=== PATIENT | male | born 1955 | race Caucasian/White ===

== ENCOUNTER 2017-07-08 09:00 | Observation (INO) | payer BC, OTHER ==
[2017-07-08 09:30] LABS: #Eosinphils 0.1 thou/uL (0.0-0.7); #Lymphocytes 1.1 thou/uL (1.20-3.40); #Monocytes 0.4 thou/uL (0.11-0.59); #Neutrophils 3.3 thou/uL (1.40-6.50); %Basophils 0.9 % (0.0-1.0); %Eosinophils 1.2 % (0.0-10.0); %Lymphocytes 22.2 % (21.0-51.0); %Monocytes 7.5 % (0.0-10.0); %Neutrophils 68.3 % (42.0-75.0); Hemoglobin 14.9 g/dL (14.0-18.0); Mean Corpuscular HGB CONC 33.4 g/dL (32.0-36.0); Mean Corpuscular Hemoglobin 31.3 pg (27.0-31.0); Mean Corpuscular Volume 93.8 fl (80.0-94.0); Mean Platelet Volume 7.7 fL (7.4-10.4); Platelet Count 278 thou/uL (130-400); RBC Distribution Width 11.3 % (11.5-14.5); Red Blood Cell (RBC) Count 4.78 mill/uL (4.70-6.10); White Blood Cell (WBC) Count 4.9 thou/uL (4.8-10.8)
[2017-07-08] MEDS ORDERED: Nitroglycerin 2% Ointment 1 INCH/1 GM Packet ONE (09:37)
--- NOTE | 2017-07-08 09:52 | RAD ---
CHEST ONE VIEW: History: Chest pain. Comparison: None. FINDINGS: Lungs are clear. No pneumothorax or effusion. Cardiac silhouette and mediastinal contours are within normal limits. IMPRESSION: No acute intrathoracic abnormality. POS: [facility]
[2017-07-08 09:56] LABS: ALT (SGPT) 24 U/L (8-55); AST (SGOT) 18 U/L (5-34); Albumin 4.5 g/dL (3.4-4.8); Alkaline Phosphatase 70 U/L (40-150); Anion Gap 14 mmol/L (10-20); BUN (Urea Nitrogen) 14 mg/dL (8.4-25.7); Bilirubin, Total 0.7 mg/dL (0.2-1.2); CK (CPK) 107 U/L (30-200); Calc. Creatinine Clearance 0 mL/min (70-130); Calcium 9.3 mg/dL (7.8-10.44); Carbon Dioxide 22 mmol/L (23-31); Chloride 107 mmol/L (98-107); Estimated GFR-MDRD Greater than 90; Globulin 2.5 g/dL (2.4-3.5); Glucose 133 mg/dL (80-115); Lipase 34 U/L (8-78); Potassium 3.9 mmol/L (3.5-5.1); Sodium 139 mmol/L (136-145)
[2017-07-08 09:59] LABS: CKMB 1.8 ng/mL (0-6.6); Troponin I Less than 0.010 ng/mL (< 0.028)
[2017-07-08] MEDS ORDERED: Acetaminophen 325 MG TAB PO PRN (11:43)
[2017-07-08 12:00] VITALS: BMI 28.1
[2017-07-08 13:03] LABS: Troponin I Less than 0.010 ng/mL (< 0.028)
[2017-07-08 15:56] LABS: Troponin I 0.016 ng/mL (< 0.028)
[2017-07-08] MEDS ORDERED: ALPRAZolam 0.5 MG TAB PO PRN (16:44)
[2017-07-08] MEDS ORDERED: Ondansetron ODT 4 MG TAB PO PRN (16:45)
[2017-07-08] MEDS ORDERED: Ondansetron HCl/PF 4 MG/2 ML Vial IVP PRN (16:45)
[2017-07-08 16:57] VITALS: TEMP 99
[2017-07-08] MEDS ORDERED: ALPRAZolam 0.5 MG TAB PO SCH (17:00)
[2017-07-08] MEDS ORDERED: Metoprolol Tartrate 25 MG TAB PO SCH ×2 (17:30→21:00)
[2017-07-08 18:22] VITALS: BP 159/97
--- NOTE | 2017-07-08 20:05 | HP ---
CHIEF COMPLAINT: Chest pain. HISTORY OF PRESENT ILLNESS: This is a 62-year-old gentleman with a past medical history significant for hypertension, who presented here with chest pain associated with subjective feeling of shortness of breath, tingling sensation around the mouth area and diaphoresis. The patient has never had this kind of pain before and at this time while history taking, pain is completely subsided. The patient had undergone stress test, awaiting results. Denies any bitter taste or sour taste in the back of hi s mouth. PAST MEDICAL HISTORY: Significant for hypertension. FAMILY HISTORY: Not significantly related to the presenting illness. SOCIAL HISTORY: Denies alcohol, tobacco or illicit drug use. REVIEW OF SYSTEMS: As documented in the body of the history. All the other systems reviewed were fo und not to be significantly related to presenting illness. PHYSICAL EXAMINATION: GENERAL: The patient was found not to be in any obvious distress. VITAL SIGNS: Afebrile with temperature 98.7, pulse 77, respiratory rate 16, O2 sat 95% with a blood pressure of 136/86. HEENT: Unremarkable with moist oral mucosa. NECK: Supple, no conjunctival injection or icterus. CARDIOVASCULAR SYSTEM: First and second heart sounds were heard. RESPIRATORY SYSTEM: Clear to auscultation. DIGESTIVE SYSTEM: Revealed a benign abdomen with positive bowel sounds. EXTREMITIES: No peripheral edema. SKIN: No new gross rash. LYMPHATICS: No peripheral lymphadenopathy. IMPRESSION: 1. Chest pain, query cause. This sounds somewhat atypical. This might be related to anxiety plus o r minus reflux disease; however, cannot completely rule out acute coronary syndrome. 2. Hypertension, hemodynamically stable. PLAN: 1. The patient ruled out of ischemia based on enzymes. However, the patient did undergo cardiac str ess test, awaiting result and if the result is negative, the patient will be able to be discharged. 2. Patient to be placed on anxiolytic p.r.n. basis. 3. Further management to be dependent on the clinical course.
[2017-07-08] MEDS ORDERED: Famotidine 20 MG TAB PO SCH (21:00)
[2017-07-09] MEDS ORDERED: Metoprolol Tartrate 25 MG TAB PO SCH (09:00)
[2017-07-09] MEDS ORDERED: Lisinopril 10 MG TAB PO SCH (09:00)
--- NOTE | 2017-07-10 13:04 | EKG ---
Test Reason : SOB Blood Pressure : / mmHG Vent. Rate : 094 BPM Atrial Rate : 094 BPM P-R Int : 132 ms QRS Dur : 102 ms QT Int : 364 ms P-R-T Axes : 061 -01 023 degrees QTc Int : 455 ms Normal sinus rhythm Nonspecific ST abnormality Abnormal ECG Confirmed by ZAIDA PALMA, LEONA ([id number]), video effects editor JULES KISER ([id number]) on 07/10/2017 1:04:36 PM Referred By: Confirmed By:LEONA CERDA MD
--- NOTE | 2017-08-01 22:36 | STRESS ---
Acquisition Time: 2017-07-08 13:37:59 Total Exercise Time: 00:07:00 Test Indications: CHEST PAIN Medications: Protocol: [facility] Max HR: 146 BPM 92% of Pred: 158 BPM Max BP: 198/098 mmHG Max Work Load: 10.1 METS RESTING ECG: NORMAL SINUS RHYTHM AT 81 BPM SYMPTOMS: NONE NORMAL BP RESPONSE ECTOPY: NONE ECG STRESS: NO SIGNIFICANT CHANGES INTERPRETATION: NEGATIVE GXT COMMENTS: SHORT 7-BEAT RUN OF SVT IN STAGE 2 OF ODALYS PROTOCOL Confirmed by JOSE ORDONEZ M.D. ([id number] on 08/01/2017 10:35:33 PM Referred By: MD Marivel CERDA Confirmed By:JOSE ORDONEZ M.D.
== END 2017-07-08 19:30 | disposition home or self-care (01) ==
LOC: ERS 09:00 → 2SW 10:34
PROVIDERS: ADMIT Internal Medicine Nephrology; ATTEND Internal Medicine Nephrology
DX: R07.9 Chest pain, unspecified (principal); R06.02 Shortness of breath; I10 Essential (primary) hypertension; Z79.899 Other long term (current) drug therapy
CPT/HCPCS: 36415; 71045; 80053; 82553; 83690; 83880; 84484; 85025; 93005; 93017; 94760; 96360; G0378

== ENCOUNTER 2024-01-28 11:57 | Inpatient (IN) | payer MEDICARE ==
[2024-01-28 14:39] LABS: #Basophils 0.04 10x3/uL (0.0-0.2); %Basophils 0.8 % (0.0-1.0); %Eosinophils 1.3 % (0.0-10.0); %Lymphocytes 16.8 % (21.0-51.0); %Monocytes 9.5 % (0.0-10.0); %Neutrophils 71.4 % (42.0-75.0); Hematocrit 38.7 % (42.0-52.0); Hemoglobin 12.9 g/dL (14.0-18.0); Mean Corpuscular HGB CONC 33.3 g/dL (32.0-36.0); Mean Platelet Volume 10.7 fL (7.4-10.4); Platelet Count 299 10x3/uL (130-400); RBC Distribution Width 12.7 % (11.5-14.5); Red Blood Cell (RBC) Count 4.45 mill/uL (4.70-6.10)
[2024-01-28 15:04] LABS: ALT (SGPT) 24 U/L (8-55); AST (SGOT) 17 U/L (5-34); Alkaline Phosphatase 86 U/L (40-110); Anion Gap 15 mmol/L (10-20); BUN (Urea Nitrogen) 29 mg/dL (8.4-25.7); Bilirubin, Total 0.4 mg/dL (0.2-1.2); Calc. Creatinine Clearance 0 mL/min (70-130); Calcium 9.6 mg/dL (7.8-10.44); Carbon Dioxide 24 mmol/L (23-31); Chloride 109 mmol/L (98-107); Estimated GFR 35; Globulin 3.3 g/dL (2.4-3.5); Glucose 158 mg/dL (80-115); Potassium 3.7 mmol/L (3.5-5.1); Protein, Total 7.3 g/dL (5.8-8.1); Sodium 144 mmol/L (136-145)
[2024-01-28 17:59] LABS: Bacteria/HPF None Seen HPF (None Seen); Bilirubin Negative (Negative); Blood, Urine Negative (Negative); CAUTI Indications for Culture Dysuria,urgency,freq; Clarity Clear (Clear); Glucose, Urine (Dipstick) Normal (Negative); Ketone, Urine Negative (Negative); Leukocyte Negative Leu/uL (Negative); Nitrite Negative (Negative); Protein, Urine (Dipstick) Negative (Neg-Trace); RBC/HPF None Seen HPF (0-3); Specific Gravity, Urine 1.008 (1.002-1.036); Squamous Epithelial None Seen HPF (0-3); Urobilinogen Normal mg/dL (Less than 2); WBC/HPF 0-3 HPF (0-3); pH, Urine 6.5 (5.0-9.0)
[2024-01-28 18:02] LABS: Urine Culture Reflex No No
[2024-01-28] MEDS ORDERED: Acetaminophen 650 MG Suppository PR PRN (19:04)
[2024-01-28] MEDS ORDERED: Ondansetron PF 4 MG/2 ML Vial IVP PRN (19:04)
[2024-01-28] MEDS: Tamsulosin HCl 0.4 MG CAP PO SCH (21:00)
[2024-01-28] MEDS: Lactated Ringer's 1,000 ML IV SCH (21:00)
[2024-01-28 21:13] VITALS: BMI 24.2
[2024-01-29 04:46] LABS: #Basophils 0.05 10x3/uL (0.0-0.2); %Basophils 0.6 % (0.0-1.0); %Eosinophils 0.8 % (0.0-10.0); %Lymphocytes 11.7 % (21.0-51.0); %Monocytes 7.8 % (0.0-10.0); %Neutrophils 78.9 % (42.0-75.0); Hematocrit 34.9 % (42.0-52.0); Hemoglobin 11.4 g/dL (14.0-18.0); Mean Corpuscular HGB CONC 32.7 g/dL (32.0-36.0); Mean Corpuscular Hemoglobin 29.1 pg (27.0-31.0); Mean Platelet Volume 10.4 fL (7.4-10.4); Platelet Count 282 10x3/uL (130-400); RBC Distribution Width 12.8 % (11.5-14.5); Red Blood Cell (RBC) Count 3.92 mill/uL (4.70-6.10)
[2024-01-29 05:38] LABS: Anion Gap 14 mmol/L (10-20); BUN (Urea Nitrogen) 24 mg/dL (8.4-25.7); Calc. Creatinine Clearance 44 mL/min (70-130); Carbon Dioxide 22 mmol/L (23-31); Chloride 112 mmol/L (98-107); Estimated GFR 42; Glucose 97 mg/dL (80-115); Magnesium 1.8 mg/dL (1.6-2.6); Potassium 3.7 mmol/L (3.5-5.1); Sodium 144 mmol/L (136-145)
[2024-01-29 05:42] LABS: Hemoglobin A1c 5.8 % (4.0-6.0)
[2024-01-29] MEDS: NIFEdipine XL 90 MG ER.TAB PO SCH (08:17)
[2024-01-30 06:28] LABS: #Basophils 0.05 10x3/uL (0.0-0.2); %Basophils 0.7 % (0.0-1.0); %Eosinophils 1.5 % (0.0-10.0); %Lymphocytes 11.6 % (21.0-51.0); %Neutrophils 74.9 % (42.0-75.0); Anion Gap 11 mmol/L (10-20); BUN (Urea Nitrogen) 22 mg/dL (8.4-25.7); Calc. Creatinine Clearance 44 mL/min (70-130); Calcium 8.7 mg/dL (7.8-10.44); Carbon Dioxide 24 mmol/L (23-31); Chloride 110 mmol/L (98-107); Estimated GFR 42; Glucose 94 mg/dL (80-115); Hematocrit 32.4 % (42.0-52.0); Hemoglobin 10.8 g/dL (14.0-18.0); Mean Corpuscular HGB CONC 33.3 g/dL (32.0-36.0); Mean Corpuscular Hemoglobin 29.3 pg (27.0-31.0); Mean Platelet Volume 10.8 fL (7.4-10.4); Platelet Count 273 10x3/uL (130-400); Potassium 3.6 mmol/L (3.5-5.1); RBC Distribution Width 12.7 % (11.5-14.5); Red Blood Cell (RBC) Count 3.68 mill/uL (4.70-6.10); Sodium 141 mmol/L (136-145)
[2024-01-31 08:03] LABS: #Basophils 0.03 10x3/uL (0.0-0.2); %Basophils 0.6 % (0.0-1.0); %Eosinophils 1.3 % (0.0-10.0); %Lymphocytes 20.6 % (21.0-51.0); %Monocytes 10.3 % (0.0-10.0); %Neutrophils 66.8 % (42.0-75.0); Hematocrit 35.3 % (42.0-52.0); Hemoglobin 11.8 g/dL (14.0-18.0); Mean Corpuscular HGB CONC 33.4 g/dL (32.0-36.0); Mean Corpuscular Hemoglobin 29.4 pg (27.0-31.0); Mean Platelet Volume 10.5 fL (7.4-10.4); Platelet Count 269 10x3/uL (130-400); RBC Distribution Width 12.8 % (11.5-14.5); Red Blood Cell (RBC) Count 4.01 mill/uL (4.70-6.10)
[2024-01-31 08:23] VITALS: BP 134/86; TEMP 98.4
[2024-01-31 08:28] LABS: Anion Gap 14 mmol/L (10-20); BUN (Urea Nitrogen) 21 mg/dL (8.4-25.7); Calc. Creatinine Clearance 40 mL/min (70-130); Calcium 9.3 mg/dL (7.8-10.44); Carbon Dioxide 23 mmol/L (23-31); Chloride 107 mmol/L (98-107); Estimated GFR 38; Glucose 101 mg/dL (80-115); Potassium 3.7 mmol/L (3.5-5.1); Sodium 140 mmol/L (136-145)
== END 2024-01-31 11:30 | disposition home or self-care (01) | DRG 699 ==
LOC: ERS 11:57 → T4-B 18:56 → OBSVTOIN 01-29 15:43
PROVIDERS: ADMIT Internal Medicine; ATTEND Hospitalist
DX: N32.0 Bladder-neck obstruction (principal); E87.21 Acute metabolic acidosis; N17.9 Acute kidney failure, unspecified; N13.8 Other obstructive and reflux uropathy; N13.30 Unspecified hydronephrosis; N40.1 Benign prostatic hyperplasia with lower urinary tract symptoms; I12.9 Hypertensive chronic kidney disease with stage 1 through stage 4 chronic kidney disease, or unspecified chronic kidney disease; N18.30 Chronic kidney disease, stage 3 unspecified; Z87.891 Personal history of nicotine dependence; T50.995A Adverse effect of other drugs, medicaments and biological substances, initial encounter; Z79.899 Other long term (current) drug therapy; R33.8 Other retention of urine
CPT/HCPCS: 36415; 51702; 51798; 76770; 80048; 80053; 81001; 83036; 83735; 85025; 87086; 93976; 96360; 96361; J7120

== ENCOUNTER 2024-02-10 14:46 | Outpatient (CLI) | payer MEDICARE ==
[2024-02-10 15:39] LABS: #Basophils 0.05 10x3/uL (0.0-0.2); %Basophils 0.7 % (0.0-1.0); %Eosinophils 0.7 % (0.0-10.0); %Lymphocytes 12.8 % (21.0-51.0); %Monocytes 7.8 % (0.0-10.0); %Neutrophils 77.7 % (42.0-75.0); Hematocrit 36.5 % (42.0-52.0); Mean Corpuscular HGB CONC 32.9 g/dL (32.0-36.0); Mean Corpuscular Hemoglobin 29.2 pg (27.0-31.0); Mean Corpuscular Volume 88.8 fL (78.0-98.0); Mean Platelet Volume 10.5 fL (7.4-10.4); Platelet Count 335 10x3/uL (130-400); RBC Distribution Width 12.7 % (11.5-14.5); Red Blood Cell (RBC) Count 4.11 mill/uL (4.70-6.10)
[2024-02-10 15:59] LABS: PTT 29.4 sec (22.9-36.1); Prothrombin Time 13.2 sec (12.0-14.7)
[2024-02-10 16:42] LABS: Anion Gap 11 mmol/L (10-20); BUN (Urea Nitrogen) 25 mg/dL (8.4-25.7); Calc. Creatinine Clearance 0 mL/min (70-130); Calcium 9.3 mg/dL (7.8-10.44); Carbon Dioxide 26 mmol/L (23-31); Chloride 105 mmol/L (98-107); Estimated GFR 41; Glucose 121 mg/dL (80-115); Potassium 3.9 mmol/L (3.5-5.1); Sodium 138 mmol/L (136-145)
== END 2024-02-10 14:47 | disposition home or self-care (01) ==
LOC: LABBT 14:46
PROVIDERS: ATTEND Urology
DX: Z01.818 Encounter for other preprocedural examination (principal); N40.1 Benign prostatic hyperplasia with lower urinary tract symptoms; R97.20 Elevated prostate specific antigen [PSA]; I10 Essential (primary) hypertension; R39.14 Feeling of incomplete bladder emptying; R33.8 Other retention of urine; N13.30 Unspecified hydronephrosis
CPT/HCPCS: 80048; 85025; 85610; 85730; 93005; 93010

== ENCOUNTER 2024-02-20 19:56 | Emergency (ER) | payer MEDICARE ==
[2024-02-20 20:45] LABS: #Basophils 0.05 10x3/uL (0.0-0.2); %Basophils 0.5 % (0.0-1.0); %Eosinophils 0.9 % (0.0-10.0); %Lymphocytes 10.7 % (21.0-51.0); %Neutrophils 78.6 % (42.0-75.0); Hematocrit 33.8 % (42.0-52.0); Hemoglobin 11.3 g/dL (14.0-18.0); Mean Corpuscular HGB CONC 33.4 g/dL (32.0-36.0); Mean Corpuscular Volume 86.7 fL (78.0-98.0); Mean Platelet Volume 10.6 fL (7.4-10.4); Platelet Count 281 10x3/uL (130-400); RBC Distribution Width 12.9 % (11.5-14.5)
[2024-02-20 21:07] LABS: ALT (SGPT) 15 U/L (8-55); AST (SGOT) 13 U/L (5-34); Albumin 3.6 g/dL (3.4-4.8); Alkaline Phosphatase 75 U/L (40-110); Anion Gap 13 mmol/L (10-20); BUN (Urea Nitrogen) 26 mg/dL (8.4-25.7); Bilirubin, Total 0.5 mg/dL (0.2-1.2); Calc. Creatinine Clearance 0 mL/min (70-130); Calcium 9.2 mg/dL (7.8-10.44); Carbon Dioxide 23 mmol/L (23-31); Chloride 107 mmol/L (98-107); Estimated GFR 40; Globulin 2.7 g/dL (2.4-3.5); Glucose 115 mg/dL (80-115); Potassium 3.9 mmol/L (3.5-5.1); Protein, Total 6.3 g/dL (5.8-8.1); Sodium 139 mmol/L (136-145)
[2024-02-20 22:18] LABS: Bilirubin Negative (Negative); Blood, Urine Large (Negative); Glucose, Urine (Dipstick) Negative (Negative); Ketone, Urine Negative (Negative); Leukocyte Small (Negative); Nitrite Negative (Negative); Protein, Urine (Dipstick) > or equal to 300 mg/dL (Neg-Trace); Urobilinogen 0.2 mg/dL (Less than 2); pH, Urine 6.5 (5.0-9.0)
[2024-02-20 22:21] LABS: CAUTI Indications for Culture Dysuria,urgency,freq; RBC/HPF Greater than 50 HPF (0-3); Squamous Epithelial None Seen HPF (0-3); WBC/HPF Greater than 50 HPF (0-3)
[2024-02-20 22:23] LABS: Clarity Cloudy (Clear)
[2024-02-20 22:28] LABS: Bacteria/HPF Rare-Few HPF (None Seen)
[2024-02-20 22:30] LABS: Urine Culture Reflex Yes Yes
[2024-02-21] MEDS ORDERED: cefTRIAXone (ROCEPHIN) 1 GM VIAL ONE (00:08)
[2024-02-21] MEDS ORDERED: Lidocaine 1% PF 5 ML VIAL ONE (00:08)
[2024-02-21] MEDS ORDERED: Sterile Water 10 ML ONE (00:10)
== END 2024-02-21 00:28 | disposition home or self-care (01) ==
LOC: ERS 19:56
DX: N39.0 Urinary tract infection, site not specified (principal); R31.9 Hematuria, unspecified; I10 Essential (primary) hypertension
CPT/HCPCS: 74176; 80053; 81001; 85025; 87086; J0696; 36415; 96372

== ENCOUNTER 2024-02-23 06:34 | Day surgery (SDC) | payer MEDICARE ==
[2024-02-10 14:52] VITALS: BMI 24.3
[2024-02-23] MEDS ORDERED: LevoFLOXacin D5W 500 mg (100 mL) BAG ONE (07:29)
[2024-02-23] MEDS ORDERED: Sodium Chloride 0.9% 100 ML ONE (07:30)
[2024-02-23] MEDS ORDERED: cefTRIAXone (ROCEPHIN) 1 GM VIAL ONE (07:30)
[2024-02-23] MEDS ORDERED: cefTRIAXone (ROCEPHIN) 2 GM VIAL ONE (07:32)
[2024-02-23] MEDS ORDERED: PROPOFOL 20 ML ONE ×2 (08:13→08:33)
[2024-02-23] MEDS ORDERED: Midazolam HCl 2 mg/2 ml Vial ONE (08:26)
== END 2024-02-23 10:30 | disposition home or self-care (01) ==
LOC: SDC 06:34
PROVIDERS: ATTEND Urology
PROC: 0VB08ZX Excision of Prostate, Via Natural or Artificial Opening Endoscopic, Diagnostic (ICD-10-PCS; principal; 2024-02-23)
PROC: 0TBB8ZX Excision of Bladder, Via Natural or Artificial Opening Endoscopic, Diagnostic (ICD-10-PCS; 2024-02-23)
DX: C61 Malignant neoplasm of prostate (principal); N40.1 Benign prostatic hyperplasia with lower urinary tract symptoms; R97.20 Elevated prostate specific antigen [PSA]; R33.9 Retention of urine, unspecified; R31.0 Gross hematuria; N13.30 Unspecified hydronephrosis; I10 Essential (primary) hypertension; Z98.890 Other specified postprocedural states; Z79.899 Other long term (current) drug therapy; Z87.891 Personal history of nicotine dependence
CPT/HCPCS: 52204; 55700; 88121; C1747; J0696; J1956; J2250; J2704; G0416

== ENCOUNTER 2024-03-03 12:30 | Outpatient (CLI) | payer MEDICARE | END 2024-03-03 12:31 | disposition home or self-care (01) | LOC: PET 12:30 | PROVIDERS: ATTEND Urology | DX: C61 Malignant neoplasm of prostate (principal); R16.0 Hepatomegaly, not elsewhere classified | CPT/HCPCS: 78815; A9552; A9595 ==

== ENCOUNTER 2025-01-01 17:29 | Emergency (ER) | payer MEDICARE ==
[~2025-01-01 17:29] MED LIST: Iopamidol-370 76% 500 ML MDV (1 ML CHARGE) ONE
[2025-01-01 19:48] LABS: #Basophils 0.05 10x3/uL (0.0-0.2); #Eosinophils Less than 0.03 10x3/uL (0.0-0.7); #Monocytes 0.65 10x3/uL (0.11-0.59); #Neutrophils 10.70 10x3/uL (1.40-6.50); %Basophils 0.4 % (0.0-1.0); %Eosinophils 0.1 % (0.0-10.0); %Lymphocytes 4.3 % (21.0-51.0); %Monocytes 5.4 % (0.0-10.0); %Neutrophils 89.5 % (42.0-75.0); Hematocrit 41.9 % (42.0-52.0); Hemoglobin 12.7 g/dL (14.0-18.0); Mean Corpuscular Hemoglobin 28.2 pg (27.0-31.0); Mean Corpuscular Volume 93.1 fL (78.0-98.0); Platelet Count 235 10x3/uL (130-400); Red Blood Cell (RBC) Count 4.50 mill/uL (4.70-6.10); White Blood Cell (WBC) Count 11.96 10x3/uL (4.8-10.8)
[2025-01-01 20:11] LABS: ALT (SGPT) 19 U/L (Less than 45); AST (SGOT) 20 U/L (11-34); Albumin 3.8 g/dL (3.1-4.5); Alkaline Phosphatase 71 U/L (40-110); Anion Gap 17 mmol/L (10-20); BUN (Urea Nitrogen) 21 mg/dL (8.4-25.7); Bilirubin, Total 0.7 mg/dL (0.3-1.2); Calc. Creatinine Clearance 0 mL/min (70-130); Calcium 8.9 mg/dL (7.8-10.44); Carbon Dioxide 18 mmol/L (23-31); Chloride 109 mmol/L (98-107); Globulin 2.5 g/dL (2.4-3.5); Glucose 105 mg/dL (80-115); Potassium 3.8 mmol/L (3.5-5.1); Sodium 140 mmol/L (136-145)
[2025-01-01] MEDS ORDERED: Ondansetron PF 4 MG/2 ML Vial ONE (21:37)
== END 2025-01-02 00:02 | disposition home or self-care (01) ==
LOC: ERS 17:29
DX: R10.9 Unspecified abdominal pain (principal); I10 Essential (primary) hypertension
CPT/HCPCS: 74177; 76705; 80053; 85025; 96374; 96375; 99284; J2270; J2405; Q9967; 36415